=== PATIENT | female | born 1960 ===

== ENCOUNTER 2024-05-18 15:31 | Outpatient (REF) | payer OTHER, SELFPAY | END 2024-05-18 15:32 | disposition home or self-care (01) | LOC: HO.SH 15:31 | PROVIDERS: Visit Provider Nurse Practitioner Family | DX: Z01.118 Encounter for examination of ears and hearing with other abnormal findings (principal); H93.293 Other abnormal auditory perceptions, bilateral | CPT/HCPCS: 92557; 92567 ==